=== PATIENT | female | born 1945 | race Caucasian/White ===

== ENCOUNTER 2019-10-24 13:26 | Emergency (ER) | payer OTHER, MEDICARE, SELFPAY ==
--- NOTE | ~2019-10-24 | XR_ITS ---
XR chest 2V 10/24/2019 14:38 Indication: Cough. History of asthma. Procedure: 2 view chest Comparison: No prior studies for comparison. Findings: Heart size normal. There is atherosclerosis of the aorta. No focal air space disease, pulmo nary edema, pleural effusion or suspected pneumothorax. Impression: 1: No acute cardiopulmonary disease. Reviewed, dictated and finalized at location A. [employer] Impression: 1: No acute cardiopulmonary disease.
[2019-10-24 13:36] VITALS: BP 151/60; PULSE 76; RESP 20; TEMP 37.1; O2SAT 97
[2019-10-24] MEDS: predniSONE 20 MG TABLET 60 MG PO (14:52)
[2019-10-24] MEDS: ALBUTEROL SULFATE NEB 2.5 MG/3 ML INH INHALATION (14:52)
[2019-10-24] MEDS: IPRATROPIUM BR 0.02% INH SOLN 0.5 MG/2.5 ML VIAL INHALATION (14:56)
[2019-10-24 15:53] VITALS: PULSE 80; RESP 16; O2SAT 96
--- NOTE | 2019-10-24 15:54 | PC.NURSE ---
Patient refused second respiratory treatment. Just wants to go home and go to bed. Dr. reyes
--- NOTE | 2019-10-24 18:43 | ED.URI ---
HPI - URI/Sore Throat General Chief Complaint: Upper Respiratory Infection Stated Complaint: cough/chest hurts/congestion Source: patient and RN notes reviewed Mode of arrival: ambulatory Limitations: physical limitation History of Present Illness HPI Narrative: The patient, a current non-smoker/nondrinker, presents with a 5-day history of cough, congestion and asssociated wheeze. No fever, sore throat, earache, calf pain/edema, precordial chest pain. She was hospitalized 2 years ago w/ last steroids then. Symptoms are mild, worse with activity or upon awakening in the morning Related Data Home Medications Medication Instructions Recorded Confirmed Bydureon 09/05/19 budesonide-formoterol [Symbicort] 2 puff INHALATION Q12H 09/05/19 10/24/19 diltiazem HCl 60 mg PO TID 09/05/19 10/24/19 levothyroxine [Synthroid] 112 mcg PO DAILY 09/05/19 10/24/19 loratadine [Claritin] 10 mg PO DAILY 09/05/19 10/24/19 magnesium oxide 400 mg PO DAILY 09/05/19 10/24/19 metolazone 2.5 mg PO DAILY 09/05/19 10/24/19 metoprolol tartrate 50 mg PO Q12H 09/05/19 10/24/19 montelukast [Singulair] 10 mg PO HS 09/05/19 10/24/19 esebopow-ype-TS-lycopen-lutein 1 tablet PO DAILY 09/05/19 10/24/19 [Complete Multi 50+] potassium chloride 20 meq PO DAILY 09/05/19 10/24/19 pravastatin 20 mg PO DAILY 09/05/19 10/24/19 pregabalin 75 mg PO BID 09/05/19 10/24/19 spironolactone 25 mg PO DAILY 09/05/19 10/24/19 tiotropium bromide [Spiriva 1 inh INHALATION BID 09/05/19 10/24/19 Respimat] warfarin 2.5 mg PO DAILY 09/05/19 10/24/19 Allergies Allergy/AdvReac Type Severity Reaction Status Date / Time No Known Allergies Allergy Verified 10/24/19 13:34 Review of Systems Review of Systems: Narrative: General/Constitutional: No weight loss,fever Eyes: N0: Redness,discharge Ears/Nose/Throat: No: Epistaxis,ear discharge Respiratory: Denies: Hemoptysis Gastrointestinal: No Vomiting, Bleeding-rectal Skin: No Lumps, eruption Neurologic: No Focal Weakness,Sz Hematologic: Denies: Petechiae/Purpura Psychiatric: No: Suicida ideationl All Other Systems: Reviewed and Negative PMFSH Comments At time of signature, agree with nursing past medical, surgical, social and family history. There is no relevant family history pertinent to the presenting complaint Exam Narrative: Exam Narrative: General Appearance: Well appearing, Well nourished EYE: PERRLA, Conjunctiva clear Ears: Auditory canal normal, TM normal Nose: Rhinorrhea, Mucousal erythema Mouth/Throat: MM moist, Uvula midline, Pharyngeal erythema Neck: Supple, No adenopathy Respiratory: No respiratory distress, Breath sounds equal, with rare wheeze Cardiovascular: RRR, No JVD Musculoskeletal: Non tender, Normal strength Skin: Warm, Dry Neurological: A&O x3, CN II-XII intact Psychiatric: Normal mood, Normal affect Course Vital Signs Vital signs: Vital Signs Temperature 98.7 F 10/24/19 13:36 Pulse Rate 76 10/24/19 13:36 Respiratory Rate 20 10/24/19 13:36 Blood Pressure 151/60 H 10/24/19 13:36 Pulse Oximetry 97 10/24/19 13:36 Temperature 98.7 F 10/24/19 13:36 Pulse Rate 80 10/24/19 15:53 Respiratory Rate 16 10/24/19 15:53 Blood Pressure 151/60 H 10/24/19 13:36 Pulse Oximetry 96 10/24/19 15:53 MDM - URI/Sore Throat Lab Data Labs: Influenza A Screen Negative Reference Range: Negative Influenza B Screen Negative Reference Range: Negative Discharge Plan Discharge Clinical Impression: Wheezing-associated respiratory infection (WARI) COPD (chronic obstructive pulmonary disease) Qualifiers: COPD type: unspecified COPD Qualified Code(s): J44.9 - Chronic obstructive pulmonary disease, unspecified Patient Disposition: Home, Self-Care Condition: Stable Instructions: Antibiotic Form Additional Instructions: You declined second treatment here AMA, go to hospital if not improved Prescriptions:
== END 2019-10-24 16:14 | disposition home or self-care (01) ==
PROVIDERS: Emergency Provider Emergency Medicine; PCP Internal Medicine
DX: J98.01 Acute bronchospasm (principal); J44.9 Chronic obstructive pulmonary disease, unspecified; I48.91 Unspecified atrial fibrillation; E78.00 Pure hypercholesterolemia, unspecified; Z86.711 Personal history of pulmonary embolism; Z96.653 Presence of artificial knee joint, bilateral; E11.9 Type 2 diabetes mellitus without complications
CPT/HCPCS: 71046; 87804; 94640; 99213; G0463; J7512